=== PATIENT | male | born 1935 | race Caucasian/White ===

== ENCOUNTER 2016-05-15 13:19 | Outpatient (CLI) | payer OTHER ==
--- NOTE | 2016-05-15 13:56 | DIAGNOSTIC IMAGING REPORT ---
PROCEDURE: CT HEAD WITHOUT CONTRAST INDICATION: SHORT TERM MEMORY LOSS TECHNIQUE: Axial CT images were acquired through the head. Coronal and sagittal reformations were created. COMPARISON: None. FINDINGS: Mild cerebral cortical atrophy. No intracranial hemorrhage or extraaxial fluid collections. Ventricles are normal in size, shape and position. There is no mass, mass effect or midline shift. The lopes-white matter differentiation is normal. There is no edema. 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 IMPRESSION: 1. No CT evidence of acute intracranial process. 2. Mild atrophy All CT scans at this facility use dose modulation, iterative reconstruction, and/or weight-based dosing when appropriate to reduce radiation dose to as low as reasonably achievable.
== END 2016-05-15 23:00 ==
LOC: CT SRH 13:19
DX: G31.9 Degenerative disease of nervous system, unspecified (principal)